=== PATIENT | female | born 1990 | race African-American/Black ===

== ENCOUNTER 2022-05-03 00:29 | Emergency (ER) | payer OTHER, MEDICAID ==
[~2022-05-03] VITALS: Ht 177.8 cm; Wt 65.0 kg
[2022-05-03] MEDS ORDERED: FLUO10TA3 PO (05:27)
[2022-05-03 05:40] VITALS: BP 123/75
== END 2022-05-03 05:41 | disposition home or self-care (01) ==
LOC: ER 00:29
DX: Z76.0 Encounter for issue of repeat prescription (principal); F99 Mental disorder, not otherwise specified
CPT/HCPCS: 99281; 99283

== ENCOUNTER 2022-08-30 06:34 | Emergency (ER) | payer OTHER, MEDICAID ==
[~2022-08-30] VITALS: Ht 175.3 cm; Wt 66.0 kg
[~2022-08-30 06:34] MED LIST: FLUO10TA3 PO
[2022-08-30 06:39] VITALS: BP 118/79
[2022-08-30] MEDS ORDERED: ACETAMINOPHEN 325MG TABLET PO ONE (07:15)
[2022-08-30 07:52] LABS: HEMOGLOBIN. 11.8 g/dL (12.0-16.0); MEAN CORPUSCULAR HEMOGLOBIN 30.3 pg (28.0-32.0); MEAN CORPUSCULAR VOLUME 89.7 fL (81.0-99.0); MEAN PLATELET VOLUME 7.5 fl (7.4-10.4); PLATELET 291 x1000/uL (130-400); RED BLOOD CELL COUNT 3.91 mill/uL (4.2-5.4); RED CELL DISTRIBUTION WIDTH 14.8 % (11.6-14.6)
[2022-08-30 07:58] LABS: CHLORIDE 103 mEq/L (98-107)
[2022-08-30 08:09] LABS: B-HCG QUANTITATIVE < 1 mIU/mL (<3)
[2022-08-30 08:13] LABS: CLARITY URINE CLEAR (CLEAR); COLOR URINE ORANGE (YELLOW); KETONES URINE 3+ (NEGATIVE); LEUKOCYTE ESTERASE URINE 1+ (NEGATIVE); NITRITE URINE NEGATIVE (NEGATIVE); OCCULT BLOOD URINE 3+ (NEGATIVE); PH URINE 5.5 (4.5-8.0); PROTEIN URINE 2+ (NEGATIVE); SPECIFIC GRAVITY URINE 1.036 (1.005-1.030)
[2022-08-30 08:36] LABS: PLATELET ESTIMATE NORMAL
[2022-08-30] MEDS ORDERED: NITR100C PO ×2 (08:44)
[2022-08-30] MEDS ORDERED: IBUP-2030 PO (08:44)
[2022-08-30] MEDS ORDERED: CEPH500T PO (09:46)
== END 2022-08-30 09:00 | disposition home or self-care (01) ==
LOC: ER 06:34
DX: N93.8 Other specified abnormal uterine and vaginal bleeding (principal); N39.0 Urinary tract infection, site not specified
CPT/HCPCS: 36415; 76830; 76856; 80053; 81003; 81025; 84702; 85025; 86850; 86900; 99284

== ENCOUNTER 2023-08-28 23:25 | Emergency (ER) | payer MEDICAID, OTHER ==
[~2023-08-28] VITALS: Ht 177.8 cm; Wt 75.0 kg
[~2023-08-28 23:25] MED LIST changes: +CEPH500T PO; -FLUO10TA3 PO; +FLUO10TA34 PO; +IBUP-2030 PO
[2023-08-29 00:33] VITALS: TEMP 98.7; O2SAT 100
[2023-08-29] MEDS ORDERED: MECLIZINE 25MG TABLET PO ONE (01:15)
[2023-08-29 01:26] LABS: BASOPHILS % 0.7 % (0.0-2.0); EOSINOPHILS % 2.5 % (0.0-5.0); HEMATOCRIT. 34.1 % (36.0-48.0); HEMOGLOBIN. 11.3 g/dL (12.0-16.0); MEAN CORPUSCULAR HEMOGLOBIN 30.2 pg (28.0-32.0); MEAN CORPUSCULAR HGB CONC 33.1 g/dL (31.0-37.0); MEAN CORPUSCULAR VOLUME 91.2 fL (81.0-99.0); MEAN PLATELET VOLUME 7.5 fl (7.4-10.4); MONOCYTES % 6.9 % (2.0-8.0); NEUTROPHILS % 61.9 % (40.0-76.0); PLATELET 319 x1000/uL (130-400); RED BLOOD CELL COUNT 3.74 mill/uL (4.2-5.4); RED CELL DISTRIBUTION WIDTH 15.5 % (11.6-14.6); WHITE BLOOD COUNT 10.4 x1000/uL (4.5-11.0)
[2023-08-29 01:31] LABS: CALCIUM 8.8 mg/dL (8.7-10.4); CARBON DIOXIDE 25 mEq/L (21-32); CHLORIDE 108 mEq/L (98-107); CREATININE 0.8 mg/dL (0.6-1.0); GLUCOSE 91 mg/dL (70-105); POTASSIUM 3.3 mEq/L (3.5-5.1); SODIUM 138 mEq/L (136-145); UREA NITROGEN BLOOD 7 mg/dL (9-23)
[2023-08-29] MEDS ORDERED: MECL-299 MT (01:52)
[2023-08-29 02:28] VITALS: BP 118/84; PULSE 71; RESP 19
== END 2023-08-29 02:30 | disposition home or self-care (01) ==
LOC: ER 23:25
DX: R42 Dizziness and giddiness (principal)
CPT/HCPCS: 99283; 81025; 80048; 85025; 36415; J8597

== ENCOUNTER 2023-09-27 19:21 | Emergency (ER) | payer OTHER ==
[~2023-09-27] VITALS: Ht 175.3 cm; Wt 76.0 kg
[~2023-09-27 19:21] MED LIST changes: +MECL-299 MT
[2023-09-27 20:09] VITALS: BP 108/79; PULSE 95; RESP 18; TEMP 98.2; O2SAT 100
== END 2023-09-27 20:36 | disposition left against medical advice (07) ==
LOC: ER 19:21
DX: R51.9 Headache, unspecified (principal); Z53.21 Procedure and treatment not carried out due to patient leaving prior to being seen by health care provider
CPT/HCPCS: 99281